=== PATIENT | female | born 1995 | race Two or more races ===

== ENCOUNTER 2024-10-21 07:46 | Observation (INO) | payer OTHER ==
[~2024-10-21] VITALS: Ht 170.2 cm; Wt 90.3 kg
[2024-10-21 09:04] LABS: Fern Testing Negative
[2024-10-21] MEDS ORDERED: PREN-96 PO (09:14)
--- NOTE | 2024-10-22 15:37 | DVHDS2 ---
Physician Discharge Progress N Final Diagnosis: r/o labor 39wks Operations or Procedures: Operations or Procedures nst,sono Condition on Discharge: Good Disposition: Home Discharge Instructions: Diet: Regular Activity: No Restrictions, As Tolerated Medications: na Follow Up Care: Specialist: 2d Discharge Statement: "Patient was advised to return to the ER or call 911 if any headaches, dizziness, shortness of breath, chest pain, abdominal pain, bleeding, fevers, or worsening of medical condition. Patient was counseled about treatment plan, medications, possible side effects, patientverbalized understanding. All questions were answered to the best of my ability. This discharge took greater then 30 minutes in planning, reviewing documentation, counseling the patient, and discussing with other team members." Visit Coding OBGYN Date of Service: Oct 21, 2024 Billing Provider: ADIS SELF DO CASE LOADER OPERATOR Common Visit Codes: [id number] INP/OBS CARE (HIGH) CASE LOADER OPERATOR Procedure Codes: 75510-TIW.SURG: W/SALPINGOSTOMY, 31334-70- NON-STRESS TEST ADIS SELF DO Oct 22, 2024 15:37
[2024-10-22] MEDS ORDERED: PREN-96 PO (23:31)
[2024-10-22] MEDS ORDERED: IBU600T PO (23:31)
[2024-10-22] MEDS ORDERED: DOCU-265 PO (23:31)
== END 2024-10-21 09:32 | disposition home or self-care (01) ==
LOC: LDRP 07:46 → UNDOADMOB 07:46 → LDRP 07:56
PROVIDERS: ADMIT Obstetrics & Gynecology; ATTEND Obstetrics & Gynecology
DX: O62.9 Abnormality of forces of labor, unspecified (principal); Z98.890 Other specified postprocedural states; Z79.899 Other long term (current) drug therapy; Z3A.39 39 weeks gestation of pregnancy
CPT/HCPCS: 81002; 84112; 94760; G0378; Q0114

== ENCOUNTER 2024-10-21 15:50 | Inpatient (IN) | payer OTHER ==
[~2024-10-21] VITALS: Ht 170.2 cm; Wt 90.3 kg
[~2024-10-21 15:50] MED LIST: PREN-96 PO
[2024-10-21] MEDS ORDERED: PENICILLIN G POT 5MIL/D5 50ML 50 ML IV ONE (19:00)
[2024-10-21] MEDS ORDERED: NALBUPHINE HCL 10 MG/1ml INJECTION IV PRN (19:00)
[2024-10-21] MEDS ORDERED: LIDOCAINE 2%HCL (LOCAL ANESTH.) INJ 20ML MDV IJ PRN (19:00)
[2024-10-21] MEDS ORDERED: LACTATED RINGER'S 1,000 ML IV SCH (19:00)
--- NOTE | 2024-10-21 19:15 | DVH ---
US BIOPHYSICAL PROFILE US OB LIMITED CLINICAL HISTORY: Unknown history. MARY check. COMPARISON: None TECHNIQUE: Grayscale imaging of the pelvis is performed FINDINGS: Single living intrauterine gestation. Cephalic presentation. heart rate 157 beats per minute. Average ultrasound age 37 weeks 4 days. Estimated due date 11/07/2024. Placenta is anterior. The cervix is not clearly visualized. No definite evidence of abruption or prev ia at this time. measurements (cm): BPD 9.1, HC 34.1, AC 35.7, FL 6.6. Estimated weight: 3390g Amniotic fluid index: 5.7cm Biophysical profile: 8 out of 8. (2 breathing, 2 activity, 2 tone, 2 MARY) IMPRESSION: Single living intrauterine gestation as above. Borderline low amniotic fluid index. Biophysical profile score otherwise 8 out of 8. Recommend attent ion on follow-up.
[2024-10-21] MEDS ORDERED: ePHEDrine SULFATE 50 MG/ML AMP IV ONE (19:30)
[2024-10-21] MEDS: NALOXONE HCL 0.4 MG/ML VIAL IV ONE (19:30)
[2024-10-21] MEDS ORDERED: LACTATED RINGER'S 1,000 ML IV ONE (19:30)
[2024-10-21] MEDS: LIDOCAINE HCL 2 %PF INJ 10ML AMP IJ ONE (19:30)
[2024-10-21] MEDS: ROPIVACAINE 0.5% (5MG/ML) 20ML AMPULE IJ ONE (19:30)
[2024-10-21 20:11] LABS: Urine Bacteria None Seen /hpf (None Seen)
[2024-10-21 20:16] LABS: Basophils # (auto) 0 10 ^3/uL (0-0.2); Basophils % (auto) 0.3 % (0.0-2.0); Eosinophils # (auto) 0 10 ^3/uL (0-0.8); Eosinophils % (auto) 0.2 % (0.0-7.0); Hematocrit 41.1 % (36.0-46.0); Hemoglobin 14.3 g/dL (12.2-16.2); Lymphocytes # (auto) 2.4 10 ^3/uL (0.4-5.4); Lymphocytes % (auto) 21.3 % (10.0-50.0); Mean Corpuscular Hemoglobin 28.4 pg (28.0-32.0); Mean Corpuscular Hgb Conc. 34.8 g/dL (32.0-36.0); Mean Corpuscular Volume 81.8 fL (80.0-100.0); Monocytes # (auto) 1.1 10 ^3/uL (0-1.3); Monocytes % (auto) 9.3 % (0.0-12.0); Neutrophils # (auto) 7.8 10 ^3/uL (1.6-8.6); Neutrophils % (auto) 68.9 % (37.0-80.0); Nucleated Red Blood Cells % 0.2 %; Platelet Count (auto) 221 10^3/uL (140-450); Red Blood Cells 5.02 10^6/uL (4.0-5.20); Red Cell Distribution Width 15.3 % (11.8-14.3); White Blood Cell 11.3 10^3/uL (4.4-10.8)
[2024-10-21 20:32] LABS: Alanine Aminotransferase 14 U/L (7-40); Albumin 4.5 g/dL (3.2-4.8); Anion Gap 10 (5-15); Aspartate Aminotransferase 14 U/L (13-40); BUN/Creatinine Ratio 11.3 (10.0-20.0); Bilirubin, Total 0.5 mg/dL (0.2-1.0); Calcium 9.9 mg/dL (8.7-10.4); Carbon Dioxide 22 mmol/L (20-31); Chloride 106 mmol/L (98-107); Sodium 138 mmol/L (136-145); Total Protein 7.4 g/dL (5.7-8.2)
[2024-10-21 20:34] LABS: Alkaline Phosphatase 214 U/L (46-116); Blood Urea Nitrogen 6 mg/dL (9-23); Glucose 71 mg/dL (74-106); Potassium 3.5 mmol/L (3.5-5.1)
[2024-10-21 20:35] LABS: Urine Blood Negative /uL (Negative); Urine Clarity Clear (Clear); Urine Color Colorless (Yellow); Urine Protein, UAD Negative (Negative); Urine Specific Gravity 1.007 (1.001-1.035); Urine Squamous Epithelial Cell FEW /hpf (<5); Urine Urobilinogen Normal (Negative); Urine WBC < 1 /HPF (0-5)
[2024-10-21 20:35] LABS: INR 0.91 (0.9-1.15); Partial Thromboplastin Time 25.9 SEC (24.5-34.5); Prothrombin Time 9.7 sec (9.3-11.8)
[2024-10-21 20:51] LABS: Amphetamine Screen, Urine Neg (NEGATIVE); Barbiturate Scree,Urine Neg (NEGATIVE); Cannabinoid Screen, Urine Neg (NEGATIVE); Cocaine Screen, Urine Neg (NEGATIVE); Opiate Scree,Urine Neg (NEGATIVE); Phencyclidine Screen, Urine Neg (NEGATIVE)
[2024-10-21 21:14] LABS: Benzodiazephine Screen, Urine Neg (NEGATIVE)
[2024-10-21] MEDS: fentaNYL CITRATE 100 MCG/2 ML VL IV ONE (21:21)
[2024-10-21] MEDS: ROPIVACAINE HCL 200 ML EPI STA (21:21)
[2024-10-21] MEDS: PHISODERM TOP SOLN 240ML BTL TOP PRN (21:24)
[2024-10-21] MEDS: WITCH HAZEL-GLYCERIN PAD TOP PRN (21:24)
[2024-10-21] MEDS: DERMOPLAST 60ML BOTTLE TOP PRN (21:24)
--- NOTE | 2024-10-21 21:24 | EPIDURAL ---
Anesthesia Procedural Note - Epidural Informed consent obtained?: Yes Medication Administered: Fentanyl 100 mcg Spinal level of insertion: L4-L5 Test dose of lidocaine & Epine: Negative Infusion started: Yes Start time: 20:50 End time: 21:15 Procedure description Procedure description: Called for labor analgesia. Chart reviewed, history taken, patient examined. Patient is , here in labor at term with SROM. Informed consent for CSE obtained at 2049 (BP 122/56 HR 75 spO2 100). Sitting position, sterile prep and drape. Time out done at 2052. L4-5 space infiltrated with 1% lido. Epidural needle placed with GRISELDA at 7cm. 25G spinal needle +clear CSF. 15mcg fentanyl given IT at 2057 (BP 126/61 HR 75 spO2 100). Epidural catheter secured at 12cm. Aspiration and test dose (5cc 1.5% lido with epi) negative at 2099 (BP 110/62 HR 68 spO2 99). 85mcg fentanyl given via epidural at 2104 (BP 118/63 HR 77 spO2 99). Patient reports improving pain. 0.2% ropivacaine infusion started at 2112 (BP 116/73 HR 78 spO2 100). Will follow as needed. NICK BARON MD Oct 21, 2024 21:24
[2024-10-21] MEDS: ONDANSETRON HCL 4 MG/2 ML VIAL ONE (21:25)
[2024-10-21] MEDS ORDERED: PENICILLIN G POTASSIUM 2,500,000 UNITS in D5W 5% 50 ML IV SCH (23:00)
[2024-10-21] MEDS: LACT. RINGERS/OXYTOCIN 20UNITS 500 ML IV ONE ×2 (23:01→23:02)
--- NOTE | 2024-10-21 23:32 | DVHHP2 ---
OB CC & HPI Date Date of Admission: Oct 21, 2024 Patient Identification: : 2 Para: 1 EDC: Oct 25, 2024 EGA: 39.3 weeks Chief Complaints: Reason for admission: active labor Admission Nurse Assessment Rev: Yes History of Present Complaints Came in with h/o contractions. Denies ROM or bleeding Past Medical History Cardiac: No pertinent Hx Pulmonary: No pertinent Hx Central Nervous System: No pertinent Hx GI: No pertinent Hx Hemotology/Oncology: No pertinent Hx Hepatobiliary: No pertinent Hx Psychiatric: No pertinent Hx Musculoskeletal: No pertinent Hx Rheumotologic: No pertinent Hx Infectious Disease: No peritnent Hx ENT: No pertinent Hx Renal/: No pertinent Hx Endocrine: No pertinent Hx Dermatology: No pertinent Hx Past Surgical History: No pertinent Hx OB History OB History Care: Other (States she had PNC at [place]. Records not available for review) Ultrasounds: Other (None available for review) Obstetrical Complications: None Medical Complications: None Allergies: Coded Allergies: NO KNOWN ALLERGIES (Unverified , 10/21/24) Home Meds Reported Medications Vit W/ Ferrous Fumara ( One Daily) Daily Tab, 1 TAB PO DAILY, #90 TAB 3 Refills 10/21/24 Current Medications Current Medications Medications (Trade) Dose Ordered Sig/Scott Route PRN Reason Start Time Stop Time Status Last Admin Lactated Ringer's 1,000 ml @ 125 mls/hr Q8H IV 10/21/24 19:00 Nalbuphine HCl (Nubain) 10 mg Q4HP PRN IV MODERATE PAIN (4-6 PAIN SCALE) 10/21/24 19:00 Penicillin G Potassium 5001760 units/Dextrose 50 ml @ 100 mls/hr Q4H IV 10/21/24 23:00 Cancel Witch Leticia (Tucks) 1 pad PRN PRN TOP PERINEAL AREA DISCOMFORT 10/21/24 19:00 10/21/24 21:24 Sodium Lauryl Sulfate (Phisoderm) 240 ml PRN PRN TOP PERINEAL AREA DISCOMFORT 10/21/24 19:00 10/21/24 21:24 Benzocaine (Dermoplast) 1 applic PRN PRN TOP PERINEAL AREA DISCOMFORT 10/21/24 19:00 10/21/24 21:24 Lidocaine HCl (Xylocaine) 40 ml ONCE PRN IJ PERINEAL AREA DISCOMFORT 10/21/24 19:00 Ropivacaine 200 ml @ 0 mls/hr ONCE STAT EPI 10/21/24 21:21 10/21/24 21:57 DC Family & Social History Family/Social History Past Family/Social History: Family hx unremarkable Blood Type: O+ Rubella: immune RPR/VDRL: Negative GBS Status: Negative HBsAG: Negative Review of Systems Constitutional: No symptom reported Ears, Nose, & Throat: No symptom reported Eyes: No symptom reported Pulmonary/Respiratory: No symptom reported Cardiovascular: No symptom reported Gastrointestinal: No symptom reported Genitourinary: No symptom reported Musculoskeletal: No symptom reported Skin: No symptom reported Psychiatric: No symptom reported Endocrine: No symptom reported Hemotologic/Lymphatic: No symptom reported OB Admission Exam Physical Exam Vitals: Vital Signs Date Time Temp Pulse Resp B/P (MAP) Pulse Ox O2 Delivery O2 Flow Rate FiO2 10/21/24 21:21 119/72 HEENT: NCAT Heart: Rhythm Normal Abdomen: Gravid Extremities: Normal Reflexes: Normal Cervical Dilatation: 6cm Effacement: 100% Membranes: Intact Heart Rate: 130's Accelerations: Accelerations Present Decelerations: No Decelerations Plastics Heat Welder Variability: Average (6-25) Contractions on Admission: < 5 Minutes Apart Intensity: Moderate OB Plan Plan Admitting Diagnosis: Active labor at term Category 1 tracing Plan: Expectant Management Visit Coding OBGYN Date of Service: Oct 21, 2024 Billing Provider: MARILY MENDOZA CNM CLOTHING PATTERNMAKER Common Visit Codes: [id number] INP/OBS CARE (HIGH) CLOTHING PATTERNMAKER Procedure Codes: 30987-COY DELIVERY ONLY MARILY MENDOZA CNM Oct 21, 2024 23:32
--- NOTE | 2024-10-21 23:36 | LDN2 ---
Labor and Delivery Note Date 10/21/24 Age 29 2 Para 1 AB 0 EDC 10/25/2024 EGA 39.3 weeks Diagnosis Spontaneous vaginal delivery Vaginal Delivery: VTX Vacuum Assisted: No Placenta: Spontaneous Sex: Female Weight 7-8 (3405 gms) Apgars 8/9 Nuchal Cord Transected: No Amniotic Fluid: Clear Anesthesia Epidural Episiotomy: No Extension: No EBL 100cc Labs Laboratory Tests 10/21/24 19:06: Hepatitis B Surface Antigen Negative, HIV (1&2) Antibody Negative Blood Bank 10/21/24 19:06: Blood Type O POSITIVE Complications None Conditions Stable Manager Domestic Dr. Rock Comments/Significant Med Chuck None Visit Coding OBGYN Date of Service: Oct 21, 2024 Billing Provider: MARILY MENDOZA CNM CHUMMER Common Visit Codes: PROCEDURE ONLY CHUMMER Procedure Codes: 77455-NSO DELIVERY ONLY MARILY MENDOZA CNM Oct 21, 2024 23:36
[2024-10-22 03:30] VITALS: BP 108/65; PULSE 75; RESP 16; TEMP 97.5; O2SAT 99
[2024-10-22] MEDS ORDERED: ACETAMINOPHEN 325 MG TAB PO PRN (03:30)
--- NOTE | 2024-10-22 03:39 | DVHPN2 ---
Chief Complaints Patient reports: No new complaints (Coping well. Denies any sx. Ambulates and voids well. Breast feeds well. Denies blues) Nursing reports: No new complaints Objective Vitals Vital Signs Date Time Temp Pulse Resp B/P (MAP) Pulse Ox O2 Delivery O2 Flow Rate FiO2 10/22/24 01:32 Room Air 10/21/24 21:21 119/72 Medications Current Medications Medications (Trade) Dose Ordered Sig/Scott Route PRN Reason Start Time Stop Time Status Last Admin Acetaminophen (Tylenol Tablet) 650 mg Q4HP PRN PO MILD PAIN (1-3 PAIN SCALE) 10/22/24 03:30 Benzocaine (Dermoplast) 1 applic PRN PRN TOP PERINEAL AREA DISCOMFORT 10/21/24 19:00 10/21/24 21:24 Docusate Sodium (Colace Capsule) 200 mg HS PO 10/22/24 22:00 Ibuprofen (Motrin Tablet) 600 mg Q6HP PRN PO MODERATE PAIN (4-6 PAIN SCALE) 10/22/24 03:30 Lactated Ringer's 1,000 ml @ 125 mls/hr Q8H IV 10/21/24 19:00 Cancel Lidocaine HCl (Xylocaine) 40 ml ONCE PRN IJ PERINEAL AREA DISCOMFORT 10/21/24 19:00 Cancel Nalbuphine HCl (Nubain) 10 mg Q4HP PRN IV MODERATE PAIN (4-6 PAIN SCALE) 10/21/24 19:00 Cancel Penicillin G Potassium 1249542 units/Dextrose 50 ml @ 100 mls/hr Q4H IV 10/21/24 23:00 Cancel Sodium Lauryl Sulfate (Phisoderm) 240 ml PRN PRN TOP PERINEAL AREA DISCOMFORT 10/21/24 19:00 10/21/24 21:24 Witch Leticia (Tucks) 1 pad PRN PRN TOP PERINEAL AREA DISCOMFORT 10/21/24 19:00 10/21/24 21:24 General: Normal Lungs: Normal, Normal breath sounds, Lungs clear Cardiovascular: Normal, Regular rate and rhythm Abdominal: Normal (Fundus firm at umbilicus, non tender) Musculoskeletal: Normal Extremities: Normal (Albert's neg) Skin: Normal Others Breasts soft, nipples intact Perineum without edema, lochia minimal, no odor Studies Laboratory Tests 10/21/24 19:06 Test 10/21/24 19:06 Range/Units Serum Glucose 71 L 74-106 mg/dL Ass/Plan Assessment 1st PP day Plan Continue PP management Evaluate for d/c tomorrow MARILY MENDOZA CNM Oct 22, 2024 03:39
[2024-10-22] MEDS: ONDANSETRON HCL 4 MG/2 ML VIAL IM ONE (03:58)
[2024-10-22] MEDS: ONDANSETRON HCL 4 MG/2 ML VIAL IV ONE (03:58)
[2024-10-22 07:00] VITALS: BP 100/53; PULSE 66; RESP 18; TEMP 98; O2SAT 100
[2024-10-22 11:00] VITALS: BP 110/62; PULSE 60; RESP 16; TEMP 98.6; O2SAT 97
[2024-10-22] MEDS: IBUPROFEN 600 MG TAB PO PRN (14:09)
[2024-10-22 15:00] VITALS: BP 127/70; PULSE 68; RESP 14; TEMP 98.2; O2SAT 97
[2024-10-22 19:30] VITALS: BP 118/67; PULSE 77; RESP 18; TEMP 98.5; O2SAT 97
[2024-10-22] MEDS ORDERED: DOCUSATE SOD 100 MG CAP PO SCH (22:00)
[2024-10-22 23:00] VITALS: BP 107/63; PULSE 71; RESP 18; TEMP 98.7; O2SAT 100
[2024-10-22] MEDS ORDERED: IBU600T PO (23:31)
[2024-10-22] MEDS ORDERED: PREN-96 PO (23:31)
[2024-10-22] MEDS ORDERED: DOCU-265 PO (23:31)
--- NOTE | 2024-10-23 01:20 | DVHPN2 ---
Progress Note Date Seen: Oct 23, 2024 Subjective S: bleeding is less, eating food without issues, denies lightheaded/dizziness, pain well controlled with oral medications, no concerns with urinating, passing flatus, no BM yet, ambulating well, well. Pt c/o scratchy throat and snuffy nose, thinks its from the air conditioning above her bed. vital signs Vital Sign Date Time Temp Pulse Resp B/P (MAP) Pulse Ox O2 Delivery O2 Flow Rate FiO2 10/22/24 23:00 98.7 71 18 107/63 (78) 100 98.7 10/22/24 19:30 Room Air Total Intake and Output 10/22/24 10/22/24 10/23/24 15:00 23:00 07:00 Output Total 800 ml Balance -800 ml medications Current Medications Medications Dose Ordered Sig/Scott Route Start Time Stop Time Status Last Admin Dose Admin Lactated Ringer's 1,000 ml @ 125 mls/hr Q8H IV 10/21/24 19:00 Cancel Nalbuphine HCl 10 mg Q4HP PRN IV 10/21/24 19:00 Cancel Penicillin G Potassium [id number] units/Dextrose 50 ml @ 100 mls/hr Q4H IV 10/21/24 23:00 Cancel Witch Leticia 1 pad PRN PRN TOP 10/21/24 19:00 10/21/24 21:24 1 PAD Sodium Lauryl Sulfate 240 ml PRN PRN TOP 10/21/24 19:00 10/21/24 21:24 240 ML Benzocaine 1 applic PRN PRN TOP 10/21/24 19:00 10/21/24 21:24 1 APPLIC Lidocaine HCl 40 ml ONCE PRN IJ 10/21/24 19:00 Cancel Ibuprofen 600 mg Q6HP PRN PO 10/22/24 03:30 10/22/24 20:19 600 MG Acetaminophen 650 mg Q4HP PRN PO 10/22/24 03:30 Docusate Sodium 200 mg HS PO 10/22/24 22:00 laboratory and microbiology Laboratory Tests 10/21/24 19:06 Test 10/21/24 19:06 Range/Units Serum Glucose 71 L 74-106 mg/dL Objective O: VSS Chest: heart sounds normal and lung sounds clear bilaterally Abd: soft, non-tender, fundus 1 below U/firm/midline, active bowel sounds, no rebound or guarding Perineum: intact, no erythema/edema noted Ext: Non-tender, No edema, 2+ BLE DTRs Lochia: minimal See lab results Problems(with codes): (1) (normal spontaneous vaginal delivery) (2) Intact perineum (3) Precipitous drop in hematocrit Assessment/Plan A: 29yo now PPD#2 s/p Rh+ Rubella Immune P: D/C home today Rx sent to pharmacy precautions and preeclampsia warning signs reviewed F/U with [facility] OB office in 2 weeks Pt instructed to gargle with salt and warm water plus saline nasal spray when she goes home. Plan discussed with: Patient Visit Coding OBGYN Date of Service: Oct 23, 2024 Billing Provider: ANDREWS GARCIA CNM ETL TESTER Common Visit Codes: [id number] INP/OBS CARE(HIGH) NADREWS GARCIA CNM Oct 23, 2024 01:20
--- NOTE | 2024-10-23 01:20 | DVHDS2 ---
Obstetrics Discharge Summary Obstetrics Discharge Summary Date of Admission: Oct 21, 2024 Date of Discharge: Oct 23, 2024 Reason For Admission: Onset of Labor Procedures: NST, Ultrasound Intrapartum Procedures: Spontaneous vaginal deliv Procedures: Hct/date: (10/23/24), Hgb/date: (10/23/24) Operative Complicat: None Discharge Diagnosis: Term -Delivered Discharge Information: Activity (as tolerated, no heavy lifting and nothing in the vagina for 6 weeks), Diet (Routine), Medications (Rx sent), Instructions (Routine), Discharge to (Home), Accompanied by (partner), Discarge date (10/23/24) Visit Coding OBGYN Date of Service: Oct 23, 2024 Billing Provider: ANDREWS GARCIA CNM SUGGESTION CLERK Common Visit Codes: 52884-TFN/OBS DISCH DAY <30MIN ANDREWS GARCIA CNM Oct 23, 2024 01:20
[2024-10-23 03:15] VITALS: BP 105/57; PULSE 75; RESP 16; TEMP 98; O2SAT 97
[2024-10-23 07:15] VITALS: BP 111/88; PULSE 67; RESP 16; TEMP 98; O2SAT 100
[2024-10-23 08:44] LABS: Basophils # (auto) 0.1 10 ^3/uL (0-0.2); Basophils % (auto) 0.7 % (0.0-2.0); Eosinophils # (auto) 0.1 10 ^3/uL (0-0.8); Eosinophils % (auto) 1.8 % (0.0-7.0); Hematocrit 34.3 % (36.0-46.0); Hemoglobin 11.7 g/dL (12.2-16.2); Lymphocytes # (auto) 2.1 10 ^3/uL (0.4-5.4); Lymphocytes % (auto) 26.8 % (10.0-50.0); Mean Corpuscular Hemoglobin 28.3 pg (28.0-32.0); Mean Corpuscular Volume 83.2 fL (80.0-100.0); Monocytes # (auto) 0.7 10 ^3/uL (0-1.3); Monocytes % (auto) 9.1 % (0.0-12.0); Neutrophils # (auto) 4.9 10 ^3/uL (1.6-8.6); Neutrophils % (auto) 61.6 % (37.0-80.0); Nucleated Red Blood Cells % 0.1 %; Platelet Count (auto) 186 10^3/uL (140-450); Red Blood Cells 4.12 10^6/uL (4.0-5.20); White Blood Cell 7.9 10^3/uL (4.4-10.8)
[2024-10-23 11:15] VITALS: BP 121/64; PULSE 77; RESP 16; TEMP 98.2; O2SAT 97
[2024-10-23 12:07] LABS: Rubella Antibodies, IgG 1.33 index (Immune >0.99)
[2024-10-24 04:07] LABS: Chlamydia Trachomatis, NAA Negative (Negative); Neisseria gonorrhoeae, NAA Negative (Negative)
== END 2024-10-23 14:40 | disposition home or self-care (01) | DRG 805 ==
LOC: LDRP 15:50 → OBSVTOIN 18:30 → LDRP 18:30
PROVIDERS: ADMIT Obstetrics & Gynecology; ATTEND Obstetrics & Gynecology
PROC: 10E0XZZ Delivery of Products of Conception, External Approach (ICD-10-PCS; principal; 2024-10-21)
PROC: 3E0S3BZ Introduction of Anesthetic Agent into Epidural Space, Percutaneous Approach (ICD-10-PCS; 2024-10-21)
PROC: 00HU33Z Insertion of Infusion Device into Spinal Canal, Percutaneous Approach (ICD-10-PCS; 2024-10-21)
DX: O80 Encounter for full-term uncomplicated delivery (principal); O41.1230 Chorioamnionitis, third trimester, not applicable or unspecified; Z37.0 Single live birth; R71.0 Precipitous drop in hematocrit; Z3A.39 39 weeks gestation of pregnancy; O42.02 Full-term premature rupture of membranes, onset of labor within 24 hours of rupture
CPT/HCPCS: 36415; 59409; 62282; 76805; 76819; 80053; 80307; 81001; 81002; 85025; 85610; 85730; 86703; 86762; 86780; 86803; 86850; 86900; 86901; 87340; 94760; 96360; 96361; 96365; 96366; 96374; G0378; J2405; J2590; J7060